=== PATIENT | male | born 1935 | race Caucasian/White ===

== ENCOUNTER 2016-05-14 11:25 | Outpatient (CLI) | payer MEDICARE, BC ==
[2015-05-25 13:57] VITALS: O2SAT 98
== END 2016-05-14 11:26 | disposition home or self-care (01) | DRG 561 ==
LOC: CONVCARE 11:25
PROVIDERS: ATTEND Orthopaedic Surgery
DX: Z47.1 Aftercare following joint replacement surgery (principal); Z96.642 Presence of left artificial hip joint
CPT/HCPCS: 73502

== ENCOUNTER 2017-05-08 09:49 | Emergency (ER) | payer MEDICARE, BC, OTHER ==
[2017-05-08 10:14] VITALS: TEMP 97.6
[2017-05-08] MEDS ORDERED: ALBUTEROL/IPRATROPIUM 1 VIAL SOL INH ONE (10:33)
[2017-05-08] MEDS ORDERED: ALBUTEROL/IPRATROPIUM 1 VIAL SOL ONE (10:51)
[2017-05-08 11:10] VITALS: RESP 12; O2SAT 100
[2017-05-08 13:06] VITALS: BP 141/94; PULSE 79
== END 2017-05-08 12:20 | disposition home or self-care (01) | DRG 153 ==
LOC: ED 09:49
DX: J06.9 Acute upper respiratory infection, unspecified (principal)
CPT/HCPCS: 71045; 87430; 87804; 99283; 99284

== ENCOUNTER 2017-05-18 15:33 | Inpatient (IN) | payer MEDICARE, BC, OTHER ==
[2017-05-18] MEDS ORDERED: ALBUTEROL/IPRATROPIUM 1 VIAL SOL INH ONE ×3 (16:39→17:50)
[2017-05-18] MEDS ORDERED: CEFTRIAXONE 1 GM PDS 1 GM in SODIUM CHLORIDE 0.9% 50 ML 50 ML IV ONE (16:42)
[2017-05-18] MEDS ORDERED: AZITHROMYCIN 500 MG PDS IV SCH (16:45)
[2017-05-18] MEDS ORDERED: SOLUMEDROL 125 MG/2 ML 125 MG/2 ML PDS IV ONE (16:45)
[2017-05-18] MEDS ORDERED: ALBUTEROL/IPRATROPIUM 1 VIAL SOL ONE (16:50)
[2017-05-18] MEDS ORDERED: CEFTRIAXONE 1 GM PDS ONE (16:58)
[2017-05-18] MEDS ORDERED: SOLUMEDROL 125 MG/2 ML 125 MG/2 ML PDS ONE (16:58)
[2017-05-18 17:29] LABS: APPEARANCE,URINE Clear; BILIRUBIN,URINE NEGATIVE (NEGATIVE); COLOR,URINE Yellow; GLUCOSE, URINE (UA) NEGATIVE (NEGATIVE); KETONES,URINE NEGATIVE (NEGATIVE); LEUKOCYTE ESTERASE ,URINE NEGATIVE (NEGATIVE); NITRATE,URINE NEGATIVE (NEGATIVE); OCCULT BLOOD,URINE NEGATIVE (NEG-TRACE); UROBILINOGEN,URINE 0.2 (0.2-1.0 EU)
[2017-05-18 17:31] LABS: BASOPHILS % (AUTO) 2 % (0-3); EOSINOPHILS % (AUTO) 0 % (0-9); HEMATOCRIT 45 % (39-53); MEAN CORPUSCULAR HGB CONC 31.9 gm/dl (32.0-36.0); MEAN CORPUSCULAR VOLUME 92 fL (80-100); MONOCYTES % (AUTO) 6.2 % (0-12); NEUTROPHILS % (AUTO) 84.1 % (37-80)
[2017-05-18 17:32] LABS: CALCIUM 8.2 mg/dl (8.5-10.1); POTASSIUM 4.1 mMol/L (3.5-5.1)
[2017-05-18] MEDS ORDERED: AZITHROMYCIN 500 MG PDS IV ONE (17:43)
[2017-05-18 17:49] LABS: RBC,URINE NEGATIVE (0-3AV/HPF); WBC,URINE NEGATIVE (0-5AV/HPF)
[2017-05-18] MEDS ORDERED: ALBUTEROL NEB SOL 2.5MG/3ML 1 VIAL SOL NEB PRN (18:33)
[2017-05-18] MEDS: SOLUMEDROL 125 MG/2 ML 125 MG/2 ML PDS IV SCH (20:10)
[2017-05-18] MEDS: ALBUTEROL/IPRATROPIUM 1 VIAL SOL INH SCH (20:11)
[2017-05-18] MEDS ORDERED: ROPINIROLE HCL PO SCH (21:00)
[2017-05-18] MEDS ORDERED: DOXAZOSIN MESYLATE 8 MG PO SCH (21:00)
[2017-05-18] MEDS: DOXAZOSIN 2 MG TAB PO SCH (21:02)
[2017-05-19] MEDS: ALBUTEROL/IPRATROPIUM 1 VIAL SOL INH SCH ×5 (01:35→18:35)
[2017-05-19] MEDS: SOLUMEDROL 125 MG/2 ML 125 MG/2 ML PDS IV SCH ×4 (01:36→20:18)
[2017-05-19 07:34] LABS: BASOPHILS % (AUTO) 1 % (0-3); EOSINOPHILS % (AUTO) 0 % (0-9); HEMATOCRIT 40 % (39-53); MEAN CORPUSCULAR HGB CONC 33.4 gm/dl (32.0-36.0); MEAN CORPUSCULAR VOLUME 92 fL (80-100); MONOCYTES % (AUTO) 1.2 % (0-12); NEUTROPHILS % (AUTO) 94.4 % (37-80)
[2017-05-19 07:38] LABS: CALCIUM 8.1 mg/dl (8.5-10.1)
[2017-05-19] MEDS: SPIRONOLACTONE 25 MG TAB PO SCH (08:34)
[2017-05-19] MEDS: FUROSEMIDE 40 MG TAB PO SCH (08:35)
[2017-05-19] MEDS: PANTOPRAZOLE SODIUM 40 MG ECT PO SCH (08:35)
[2017-05-19] MEDS: RIVAROXABAN 10 MG TAB PO SCH (08:35)
[2017-05-19] MEDS: LISINOPRIL 20 MG TAB PO SCH (08:36)
[2017-05-19] MEDS: ALLOPURINOL 100 MG TAB PO SCH (08:36)
[2017-05-19] MEDS ORDERED: METOPROLOL SUCCINATE 25 MG TAB.ER.24H PO SCH (09:00)
[2017-05-19] MEDS ORDERED: SPIRONOLACTONE PO SCH (09:00)
[2017-05-19] MEDS ORDERED: AZITHROMYCIN 250 MG TAB PO SCH (09:00)
[2017-05-19] MEDS ORDERED: [UNRECOGNIZED DRUG - OTHER] PO SCH (09:00)
[2017-05-19] MEDS ORDERED: ALLOPURINOL 200 MG PO SCH (09:00)
[2017-05-19] MEDS ORDERED: OMEPRAZOLE 20 MG PO SCH (09:00)
[2017-05-19] MEDS ORDERED: METOPROLOL SUCCINATE 50 MG ER TAB ONE (10:12)
[2017-05-19] MEDS ORDERED: CEFTRIAXONE 1 GM PDS ONE (14:46)
[2017-05-19] MEDS ORDERED: SODIUM CHLORIDE 0.9% 50 ML 50 ML IV ONE (14:47)
[2017-05-19] MEDS ORDERED: CEFTRIAXONE 1 GM (PREMIX) 1 GM/50 ML SOL IV SCH (15:00)
[2017-05-19] MEDS: ROPINIROLE HCL 1 MG TAB PO SCH ×3 (15:04→20:19)
[2017-05-19] MEDS: DOXAZOSIN 2 MG TAB PO SCH (20:20)
[2017-05-20] MEDS: ALBUTEROL/IPRATROPIUM 1 VIAL SOL INH SCH ×5 (00:37→23:57)
[2017-05-20] MEDS: SOLUMEDROL 125 MG/2 ML 125 MG/2 ML PDS IV SCH ×2 (01:36→07:48)
[2017-05-20] MEDS: SODIUM CHLORIDE 0.9% FLUSH 10 ML SOL IV SCH ×5 (02:00→18:38)
[2017-05-20] MEDS: SPIRONOLACTONE 25 MG TAB PO SCH (09:08)
[2017-05-20] MEDS: METOPROLOL SUCCINATE 50 MG ER TAB PO SCH (09:09)
[2017-05-20] MEDS: FUROSEMIDE 40 MG TAB PO SCH (09:10)
[2017-05-20] MEDS: LISINOPRIL 20 MG TAB PO SCH (09:10)
[2017-05-20] MEDS: PANTOPRAZOLE SODIUM 40 MG ECT PO SCH (09:10)
[2017-05-20] MEDS: ALLOPURINOL 100 MG TAB PO SCH (09:11)
[2017-05-20] MEDS: RIVAROXABAN 10 MG TAB PO SCH (09:11)
[2017-05-20] MEDS: PREDNISONE 20 MG TAB PO SCH (09:18)
[2017-05-20] MEDS: LEVOFLOXACIN 500 MG TAB PO SCH (09:18)
[2017-05-20] MEDS: ROPINIROLE HCL 1 MG TAB PO SCH ×4 (09:59→20:33)
[2017-05-20] MEDS ORDERED: SODIUM CHLORIDE 0.9% 50 ML 50 ML IV ONE (14:32)
[2017-05-20] MEDS ORDERED: CEFTRIAXONE 1 GM PDS ONE (14:32)
[2017-05-20] MEDS ORDERED: PDS IV SCH (15:00)
[2017-05-20] MEDS ORDERED: DEXTROSE IV SCH (15:00)
[2017-05-20] MEDS ORDERED: CEFTRIAXONE IV SCH (15:00)
[2017-05-20] MEDS: DOXAZOSIN 2 MG TAB PO SCH (20:33)
[2017-05-21] MEDS: SODIUM CHLORIDE 0.9% FLUSH 10 ML SOL IV SCH ×2 (02:00→08:52)
[2017-05-21] MEDS: ALBUTEROL/IPRATROPIUM 1 VIAL SOL INH SCH ×2 (06:12→12:33)
[2017-05-21 08:24] LABS: CALCIUM 8.2 mg/dl (8.5-10.1); POTASSIUM 3.2 mMol/L (3.5-5.1)
[2017-05-21] MEDS: PANTOPRAZOLE SODIUM 40 MG ECT PO SCH (08:49)
[2017-05-21] MEDS: LISINOPRIL 20 MG TAB PO SCH (08:49)
[2017-05-21] MEDS: PREDNISONE 20 MG TAB PO SCH (08:49)
[2017-05-21] MEDS: FUROSEMIDE 40 MG TAB PO SCH (08:49)
[2017-05-21] MEDS: RIVAROXABAN 10 MG TAB PO SCH (08:49)
[2017-05-21] MEDS: SPIRONOLACTONE 25 MG TAB PO SCH (08:50)
[2017-05-21] MEDS: METOPROLOL SUCCINATE 50 MG ER TAB PO SCH (08:50)
[2017-05-21] MEDS: ALLOPURINOL 100 MG TAB PO SCH (08:50)
[2017-05-21] MEDS: ROPINIROLE HCL 1 MG TAB PO SCH ×2 (08:50→12:33)
[2017-05-21] MEDS: LEVOFLOXACIN 500 MG TAB PO SCH (08:57)
[2017-05-21 09:00] VITALS: RESP 18; TEMP 97.1
[2017-05-21 12:35] VITALS: O2SAT 96
[2017-05-21 12:41] VITALS: BP 120/64; PULSE 68
== END 2017-05-21 12:55 | disposition home or self-care (01) | DRG 190 ==
LOC: ED 15:33 → UNDOADMIN 18:07 → ACUTE CARE 18:07
PROVIDERS: ADMIT Family Medicine; ATTEND Family Medicine
DX: J96.01 Acute respiratory failure with hypoxia (principal); A41.9 Sepsis, unspecified organism; J44.0 Chronic obstructive pulmonary disease with (acute) lower respiratory infection; J18.1 Lobar pneumonia, unspecified organism; I48.2 Chronic atrial fibrillation; R39.15 Urgency of urination; J44.1 Chronic obstructive pulmonary disease with (acute) exacerbation; Z79.01 Long term (current) use of anticoagulants; Z87.891 Personal history of nicotine dependence
CPT/HCPCS: 36415; 71046; 80048; 80053; 81001; 85025; 87040; 87804; 93012; 94150; 94640; 94664; 96365; 96374; 96375; 99283; 99284; J0456; J0696; J2930; J7603; J7620; A9270; A9270-GY

== ENCOUNTER 2017-09-26 19:45 | Emergency (ER) | payer MEDICARE, BC, OTHER ==
[2017-09-26 20:22] VITALS: RESP 18
[2017-09-26] MEDS ORDERED: LIDOCAINE HCL 2% (VISCOUS) 20 ML SOL ONE (21:07)
[2017-09-26] MEDS ORDERED: LIDOCAINE HCL 2% (VISCOUS) 20 ML SOL MT ONE (21:07)
[2017-09-26] MEDS ORDERED: FLEET ENEMA PR PRN (21:07)
[2017-09-26 22:15] VITALS: BP 129/75; PULSE 63; TEMP 97.6; O2SAT 97
== END 2017-09-26 22:11 | disposition home or self-care (01) | DRG 392 ==
LOC: ED 19:45
DX: K59.00 Constipation, unspecified (principal)
CPT/HCPCS: 74019; 99282; 99283; A9270-GY

== ENCOUNTER 2017-09-29 09:06 | Emergency (ER) | payer MEDICARE, BC, OTHER ==
[2017-09-29 09:20] VITALS: RESP 18; TEMP 98.6
[2017-09-29 09:45] LABS: BASOPHILS % (AUTO) 1 % (0-3); EOSINOPHILS % (AUTO) 1 % (0-9); HEMATOCRIT 36 % (39-53); HEMOGLOBIN 12.1 gm/dl (13.5-17.7); LYMPHOCYTES % (AUTO) 19.4 % (10-50); MEAN CORPUSCULAR HEMOGLOBIN 28.9 pg (27.0-32.0); MEAN CORPUSCULAR HGB CONC 33.5 gm/dl (32.0-36.0); MEAN CORPUSCULAR VOLUME 86 fL (80-100); MONOCYTES % (AUTO) 9.1 % (0-12)
[2017-09-29] MEDS ORDERED: MORPHINE SULFATE 10 MG/ML SOL ONE (10:40)
[2017-09-29] MEDS ORDERED: MORPHINE SULFATE 10 MG/ML SOL IM PRN (10:40)
[2017-09-29] MEDS ORDERED: ASPIRIN 81 MG CHEWABLE CTB ONE (11:04)
[2017-09-29 11:25] VITALS: BP 115/75; PULSE 58; O2SAT 95
== END 2017-09-29 11:00 | disposition home or self-care (01) | DRG 554 ==
LOC: ED 09:06
DX: M16.12 Unilateral primary osteoarthritis, left hip (principal); M25.552 Pain in left hip
CPT/HCPCS: 36415; 72170; 73502; 85025; 96372; 99283; J2270

== ENCOUNTER 2018-03-14 07:30 | Day surgery (SDC) | payer MEDICARE, BC, OTHER ==
[2018-03-14] MEDS ORDERED: BUPIVACAINE/EPI 0.5% 10 ML SOL INFIL ONE (07:51)
[2018-03-14] MEDS ORDERED: BUPIVACAINE/EPI 0.25% 50 ML SOL ONE (08:15)
[2018-03-14] MEDS ORDERED: PROPOFOL 500 MG/50 ML EMU IV ONE (08:17)
[2018-03-14] MEDS ORDERED: MIDAZOLAM 2 MG/2 ML SOL ONE (08:18)
[2018-03-14] MEDS ORDERED: FENTANYL 100MCG/2ML SOL ONE (08:18)
[2018-03-14] MEDS ORDERED: KETOROLAC TROMETHAMINE 30 MG/ML SOL ONE (09:04)
[2018-03-14 14:32] VITALS: BP 120/80; PULSE 73
[2018-03-14 14:40] VITALS: TEMP 98.2; O2SAT 97
[2018-03-14 15:44] VITALS: RESP 16
== END 2018-03-14 14:30 | disposition home or self-care (01) | DRG 395 ==
LOC: SURG 07:30
PROVIDERS: ATTEND Surgery
DX: K40.90 Unilateral inguinal hernia, without obstruction or gangrene, not specified as recurrent (principal)
CPT/HCPCS: J1885; J2250; J3010; J2704